=== PATIENT | female | born 1975 | race Caucasian/White ===

== ENCOUNTER 2020-06-23 12:17 | Emergency (ER) | payer OTHER ==
[~2020-06-23 12:17] MED LIST: KEFLEX250 MG PO
[2020-06-23] MEDS ORDERED: NORCO 5-325 TA1 EACH PO (13:23)
[2020-06-23] MEDS ORDERED: ZOFRAN4 M1 PO (13:23)
== END 2020-06-23 13:51 | disposition home or self-care (01) ==
LOC: FER 12:17
DX: S06.0X1A Concussion with loss of consciousness of 30 minutes or less, initial encounter (principal); S00.03XA Contusion of scalp, initial encounter; I10 Essential (primary) hypertension; W20.8XXA Other cause of strike by thrown, projected or falling object, initial encounter; Y92.009 Unspecified place in unspecified non-institutional (private) residence as the place of occurrence of the external cause
CPT/HCPCS: 70450